=== PATIENT | female | born 1990 | race Caucasian/White ===

== ENCOUNTER 2017-01-16 10:21 | Emergency (ER) | payer MEDICAID, OTHER ==
[~2017-01-16] VITALS: Ht 162.6 cm; Wt 77.1 kg
[2017-01-16] MEDS ORDERED: LORazepam 0.5 MG TAB PO ONE (10:45)
[2017-01-16] MEDS ORDERED: ONDANSETRON ODT 4 MG TAB PO ONE (10:45)
[2017-01-16] MEDS ORDERED: ALBUTEROL SULF 2.5 MG/0.5ML(0.5%) NEB SOLN NEB ONE (10:45)
[2017-01-16 11:25] VITALS: BP 125/69
== END 2017-01-16 15:22 | disposition home or self-care (01) ==
LOC: ER 10:21
DX: J20.9 Acute bronchitis, unspecified (principal); K21.9 Gastro-esophageal reflux disease without esophagitis; G40.909 Epilepsy, unspecified, not intractable, without status epilepticus
CPT/HCPCS: 94640; 99283; Q0162

== ENCOUNTER 2017-03-15 17:25 | Emergency (ER) | payer MEDICAID ==
[~2017-03-15] VITALS: Ht 167.6 cm; Wt 90.7 kg
[2017-03-15 17:48] VITALS: BP 110/73
[2017-03-15] MEDS ORDERED: SODIUM CHLORIDE 0.9% 1,000 ML IV ONE (18:37)
[2017-03-15] MEDS ORDERED: ONDANSETRON HCL 4 MG/2 ML VIAL IV ONE (18:45)
[2017-03-15 20:15] LABS: Basophils # (auto) 0 uL; Basophils % (auto) 0.5 % (0.0-2.0); Eosinophils # (auto) 0.1 uL; Eosinophils % (auto) 1.5 % (0.0-7.0); Hematocrit 40.7 % (36.0-46.0); Hemoglobin 13.7 g/dL (12.2-16.2); Lymphocytes # (auto) 1.2 uL; Lymphocytes % (auto) 15.6 % (10.0-50.0); Mean Corpuscular Hemoglobin 30.2 pg (28.0-32.0); Mean Corpuscular Hgb Conc. 33.7 g/dL (32.0-36.0); Mean Corpuscular Volume 89.7 fL (80.0-100.0); Mean Platelet Volume 7.4 fL (6.9-10.8); Monocytes # (auto) 0.4 uL; Monocytes % (auto) 5.2 % (0.0-12.0); Neutrophils # (auto) 5.9 uL; Neutrophils % (auto) 77.2 % (37.0-80.0); Platelet Count (auto) 226 10^3/uL (140-450); Red Cell Distribution Width 12.3 % (11.8-14.3); White Blood Cell 7.6 10^3/uL (4.4-10.8)
[2017-03-15 20:20] LABS: INR 1.03 (0.9-1.15); Partial Thromboplastin Time 27.4 sec (22.64-33.71); Prothrombin Time 11.2 sec (9.37-12.3)
[2017-03-15 20:25] LABS: Albumin 4.2 g/dL (3.4-5.0); Calcium 9.1 mg/dL (8.5-10.1); Potassium 3.6 mmol/L (3.5-5.1)
[2017-03-15 20:28] LABS: BUN/Creatinine Ratio 12.9
[2017-03-15 20:30] LABS: Bilirubin, Total 0.3 mg/dL (0.2-1.0); Total Protein 8.1 g/dL (6.4-8.2)
== END 2017-03-16 10:15 | disposition home or self-care (01) ==
LOC: EDBD 17:25 → ER 17:38
DX: R11.10 Vomiting, unspecified (principal); B86 Scabies; K21.9 Gastro-esophageal reflux disease without esophagitis; Z88.8 Allergy status to other drugs, medicaments and biological substances
CPT/HCPCS: 36415; 80053; 85025; 85610; 85730; 96361; 96374; 99285; J2405; J7030

== ENCOUNTER 2017-06-03 17:56 | Emergency (ER) | payer MEDICAID ==
[~2017-06-03] VITALS: Ht 167.6 cm; Wt 90.7 kg
[2017-06-03 18:30] LABS: Basophils # (auto) 0 uL; Basophils % (auto) 0.3 % (0.0-2.0); Eosinophils # (auto) 0.1 uL; Eosinophils % (auto) 1.5 % (0.0-7.0); Hemoglobin 14.2 g/dL (12.2-16.2); Lymphocytes # (auto) 2.1 uL; Lymphocytes % (auto) 21.4 % (10.0-50.0); Mean Corpuscular Hemoglobin 30.5 pg (28.0-32.0); Mean Corpuscular Hgb Conc. 33.8 g/dL (32.0-36.0); Monocytes # (auto) 0.5 uL; Monocytes % (auto) 5.2 % (0.0-12.0); Neutrophils # (auto) 6.9 uL; Neutrophils % (auto) 71.6 % (37.0-80.0); Nucleated Red Blood Cells % 0.1 %; Platelet Count (auto) 221 10^3/uL (140-450); Red Blood Cells 4.67 10^6/uL (4.0-5.20); Red Cell Distribution Width 12.5 % (11.8-14.3); White Blood Cell 9.6 10^3/uL (4.4-10.8)
[2017-06-03 18:31] LABS: Urine WBC None Seen /hpf (0 - 5)
[2017-06-03 18:50] LABS: Urine Amorphous Crystal MOD /hpf (None Seen); Urine Bacteria NONE SEEN /hpf (None Seen); Urine Blood 1+ /uL (Negative); Urine Specific Gravity 1.018 (1.001-1.035)
[2017-06-03 18:51] LABS: Albumin 4.2 g/dL (3.4-5.0); BUN/Creatinine Ratio 9.1; Bilirubin, Total 0.2 mg/dL (0.2-1.0); Potassium 3.6 mmol/L (3.5-5.1); Total Protein 7.9 g/dL (6.4-8.2)
[2017-06-03] MEDS ORDERED: ONDANSETRON HCL 4 MG/2 ML VIAL IV ONE (19:00)
[2017-06-03] MEDS ORDERED: MORPHINE SULFATE 4 MG/ML SYR/VIAL IV ONE (19:00)
[2017-06-03 19:26] LABS: Amylase 75 U/L (25-115); Lipase 279 U/L (73-393)
[2017-06-04 01:01] LABS: Urine Pregnacy Test Negative (Negative)
[2017-06-04 01:28] LABS: Alcohol, Urine < 3.0 mg/dL (0-5); Amphetamine Screen, Urine NEGATIVE (NEGATIVE); Barbiturate Scree,Urine NEGATIVE (NEGATIVE); Benzodiazephine Screen, Urine NEGATIVE (NEGATIVE); Cannabinoid Screen, Urine POSITIVE (NEGATIVE); Cocaine Screen, Urine NEGATIVE (NEGATIVE); Opiate Scree,Urine NEGATIVE (NEGATIVE); Phencyclidine Screen, Urine NEGATIVE (NEGATIVE)
[2017-06-04] MEDS ORDERED: ONDANSETRON HCL 4 MG/2 ML VIAL IV ONE (01:30)
[2017-06-04 01:58] VITALS: BP 106/62
[2017-06-04] MEDS ORDERED: MORPHINE SULFATE 4 MG/ML SYR/VIAL IV ONE (02:00)
== END 2017-06-04 02:41 | disposition home or self-care (01) ==
LOC: EDBD 17:56 → ER 17:56
DX: R10.84 Generalized abdominal pain (principal); R11.2 Nausea with vomiting, unspecified; K21.9 Gastro-esophageal reflux disease without esophagitis; Z88.6 Allergy status to analgesic agent
CPT/HCPCS: 36415; 74176; 80053; 80307; 81001; 81025; 82150; 83690; 85025; 96374; 96375; 96376; 99285; J2270; J2405

== ENCOUNTER 2017-10-27 13:35 | Inpatient (IN) | payer MEDICAID ==
[~2017-10-27] VITALS: Ht 167.6 cm; Wt 93.8 kg
[2017-10-27] MEDS ORDERED: LORazepam 2MG/ML-1ML VIAL ONE ×2 (13:44→14:30)
[2017-10-27] MEDS ORDERED: LORazepam 2MG/ML-1ML VIAL IV ONE ×3 (14:00→14:45)
[2017-10-27 14:08] LABS: Basophils # (auto) 0 uL; Basophils % (auto) 0.3 % (0.0-2.0); Eosinophils # (auto) 0.1 uL; Eosinophils % (auto) 1.5 % (0.0-7.0); Hematocrit 39.1 % (36.0-46.0); Hemoglobin 13.4 g/dL (12.2-16.2); Lymphocytes # (auto) 1.2 uL; Lymphocytes % (auto) 16.8 % (10.0-50.0); Mean Corpuscular Hemoglobin 31.3 pg (28.0-32.0); Mean Corpuscular Hgb Conc. 34.4 g/dL (32.0-36.0); Monocytes # (auto) 0.4 uL; Monocytes % (auto) 5.6 % (0.0-12.0); Neutrophils # (auto) 5.6 uL; Neutrophils % (auto) 75.8 % (37.0-80.0); Platelet Count (auto) 160 10^3/uL (140-450); Red Blood Cells 4.29 10^6/uL (4.0-5.20); Red Cell Distribution Width 12.5 % (11.8-14.3); White Blood Cell 7.3 10^3/uL (4.4-10.8)
[2017-10-27] MEDS ORDERED: DIAZEPAM 5 MG/ML 2ML SYRG IV ONE (14:30)
[2017-10-27 14:31] LABS: Albumin 3.6 g/dL (3.4-5.0); BUN/Creatinine Ratio 9.3; Bilirubin, Total 0.4 mg/dL (0.2-1.0); Calcium 8.5 mg/dL (8.5-10.1); Potassium 3.6 mmol/L (3.5-5.1)
[2017-10-27 14:53] LABS: Urine Bacteria NONE SEEN /hpf (None Seen); Urine Blood Negative /uL (Negative); Urine Mucus FEW (None Seen); Urine Specific Gravity 1.012 (1.001-1.035); Urine WBC 3 /hpf (0 - 5)
[2017-10-27 14:59] LABS: Alcohol, Urine < 3.0 mg/dL (0-5); Amphetamine Screen, Urine NEGATIVE (NEGATIVE); Barbiturate Scree,Urine NEGATIVE (NEGATIVE); Benzodiazephine Screen, Urine POSITIVE (NEGATIVE); Cannabinoid Screen, Urine POSITIVE (NEGATIVE); Cocaine Screen, Urine NEGATIVE (NEGATIVE); Opiate Scree,Urine NEGATIVE (NEGATIVE); Phencyclidine Screen, Urine NEGATIVE (NEGATIVE)
[2017-10-27] MEDS ORDERED: SODIUM CHLORIDE 0.9% 1,000 ML IV SCH (16:12)
[2017-10-27] MEDS ORDERED: MORPHINE SULF INJ 2 MG/ML SYRINGE 1ML IV PRN (16:15)
[2017-10-27] MEDS ORDERED: NITROGLYCERIN 0.4 MG SL TAB SL PRN (16:15)
[2017-10-27] MEDS ORDERED: ONDANSETRON HCL 4 MG/2 ML VIAL IV PRN (16:15)
[2017-10-27] MEDS ORDERED: MORPHINE SULFATE 4 MG/ML SYR/VIAL IV PRN (16:15)
[2017-10-27 16:46] LABS: Urine Pregnacy Test Negative (Negative)
[2017-10-27] MEDS ORDERED: LEVETIRACETAM INJ 1,000 MG in D5W 5% 100 ML IV ONE (17:30)
[2017-10-27] MEDS: OXcarbazepine 300 MG TAB PO SCH (22:00)
[2017-10-27] MEDS: LEVETIRACETAM INJ 500 MG in D5W 5% 100 ML IV SCH (22:11)
[2017-10-28] VITALS (26 sets, daily range): BP systolic 89–136; BP diastolic 47–83
[2017-10-28] MEDS: OXcarbazepine 300 MG TAB PO SCH ×2 (01:01→21:46)
[2017-10-28 03:42] LABS: Basophils # (auto) 0 uL; Basophils % (auto) 0.4 % (0.0-2.0); Eosinophils # (auto) 0.1 uL; Eosinophils % (auto) 1.8 % (0.0-7.0); Hematocrit 39.3 % (36.0-46.0); Hemoglobin 13.2 g/dL (12.2-16.2); Lymphocytes # (auto) 1.5 uL; Lymphocytes % (auto) 21.3 % (10.0-50.0); Mean Corpuscular Hemoglobin 30.2 pg (28.0-32.0); Mean Corpuscular Hgb Conc. 33.5 g/dL (32.0-36.0); Mean Corpuscular Volume 90.4 fL (80.0-100.0); Monocytes # (auto) 0.4 uL; Monocytes % (auto) 6.3 % (0.0-12.0); Neutrophils # (auto) 4.9 uL; Neutrophils % (auto) 70.2 % (37.0-80.0); Nucleated Red Blood Cells % 0.1 %; Platelet Count (auto) 157 10^3/uL (140-450); Red Blood Cells 4.35 10^6/uL (4.0-5.20); Red Cell Distribution Width 12.5 % (11.8-14.3)
[2017-10-28 04:00] LABS: Albumin 3.2 g/dL (3.4-5.0); Calcium 8.1 mg/dL (8.5-10.1); Potassium 3.8 mmol/L (3.5-5.1)
[2017-10-28 04:15] LABS: Bilirubin, Total 0.3 mg/dL (0.2-1.0); Total Protein 6.2 g/dL (6.4-8.2)
[2017-10-28] MEDS: LEVETIRACETAM INJ 500 MG in D5W 5% 100 ML IV SCH ×2 (10:33→21:46)
[2017-10-28] MEDS ORDERED: PANTOPRAZOLE 40 MG TAB PO ONE (11:00)
[2017-10-28] MEDS: ALBUTEROL SULF 2.5 MG/0.5ML(0.5%) NEB SOLN NEB PRN ×2 (11:43→22:39)
[2017-10-28] MEDS: BUDESONIDE (INHALATION) 0.5 MG/2 ML NEB NEB SCH ×2 (11:44→22:38)
[2017-10-28] MEDS ORDERED: HYDR-4683 PO (16:07)
[2017-10-28] MEDS ORDERED: ALBUAER3 IN (16:07)
[2017-10-28] MEDS ORDERED: BECL80AE11 IN (16:07)
[2017-10-28] MEDS ORDERED: PROM25TA5 PO (16:07)
[2017-10-28] MEDS ORDERED: CHOL20007 PO (16:07)
[2017-10-28] MEDS ORDERED: OME20T PO (16:07)
[2017-10-28] MEDS ORDERED: OXCA600T3 PO (16:07)
[2017-10-28] MEDS ORDERED: DIVA500T53 PO (16:07)
[2017-10-28] MEDS ORDERED: ONDA4TAB5 PO (16:07)
[2017-10-28] MEDS ORDERED: DICY10CA12 PO (16:07)
[2017-10-28] MEDS ORDERED: LORA-622 PO (16:07)
[2017-10-28] MEDS ORDERED: TRIA0.1P11 TOP (16:07)
[2017-10-28] MEDS ORDERED: MAGN400T21 PO (16:07)
[2017-10-29] VITALS (10 sets, daily range): BP systolic 101–125; BP diastolic 56–75
[2017-10-29] MEDS: LORazepam 2MG/ML-1ML VIAL IV PRN ×5 (02:40→20:35)
[2017-10-29] MEDS: ALBUTEROL SULF 2.5 MG/0.5ML(0.5%) NEB SOLN NEB PRN (06:12)
[2017-10-29] MEDS: BUDESONIDE (INHALATION) 0.5 MG/2 ML NEB NEB SCH ×2 (06:13→20:24)
[2017-10-29 11:09] LABS: INR 1.07 (0.9-1.15); Partial Thromboplastin Time 29.9 sec (23.78-33.04); Prothrombin Time 11.4 sec (9.27-12.13)
[2017-10-29] MEDS: PANTOPRAZOLE 40 MG TAB PO SCH (11:15)
[2017-10-29] MEDS: LEVETIRACETAM INJ 500 MG in D5W 5% 100 ML IV SCH (11:15)
[2017-10-29] MEDS: OXcarbazepine 300 MG TAB PO SCH ×2 (11:15→22:45)
[2017-10-29] MEDS: CHOLECALCIFEROL (VITD3) 1,000 UNIT TAB PO SCH (11:30)
[2017-10-29] MEDS: ALBUTEROL SULF 2.5 MG/0.5ML(0.5%) NEB SOLN NEB SCH ×2 (11:35→20:24)
[2017-10-29] MEDS ORDERED: ETOMIDATE (2MG/ML) 20ML VIAL IV ONE (11:49)
[2017-10-29] MEDS ORDERED: SUCCINYLCHOLINE CHLORIDE 20 MG/ML 10ML VIAL IV ONE (11:49)
[2017-10-29] MEDS ORDERED: ROCURONIUM 10MG/ML 10ML VIAL IV ONE (11:50)
[2017-10-29] MEDS ORDERED: MIDAZOLAM HCL 5 MG/ML-1ML VIAL ONE (11:51)
[2017-10-29] MEDS ORDERED: MIDAZOLAM DRIP 50 mg/50mL 0 ML IV ONE (11:56)
[2017-10-29] MEDS ORDERED: MIDAZOLAM HCL 5 MG/ML-1ML VIAL IV ONE (12:00)
[2017-10-29] MEDS ORDERED: DICYCLOMINE HCL 10 MG CAP PO PRN (12:00)
[2017-10-29] MEDS ORDERED: SODIUM BICARBONATE 8.4% INJ 50ML SYRINGE IV ONE (16:36)
[2017-10-29] MEDS ORDERED: EPINEPHrine HCL 1 MG/10 ML SYRG IV ONE (16:36)
[2017-10-29] MEDS ORDERED: PHENobarbital SODIUM INJ 600 MG in SODIUM CHL 0.9% 100 ML IV ONE (21:00)
[2017-10-30] MEDS: ALBUTEROL SULF 2.5 MG/0.5ML(0.5%) NEB SOLN NEB SCH ×3 (00:20→11:56)
[2017-10-30 02:30] VITALS: BP 130/78
[2017-10-30 04:30] VITALS: BP 132/73
[2017-10-30 06:57] LABS: Basophils # (auto) 0 uL; Basophils % (auto) 0.3 % (0.0-2.0); Eosinophils # (auto) 0.1 uL; Hematocrit 38.9 % (36.0-46.0); Hemoglobin 13.4 g/dL (12.2-16.2); Lymphocytes # (auto) 1.7 uL; Lymphocytes % (auto) 26.2 % (10.0-50.0); Mean Corpuscular Hemoglobin 31.1 pg (28.0-32.0); Mean Corpuscular Hgb Conc. 34.4 g/dL (32.0-36.0); Mean Corpuscular Volume 90.5 fL (80.0-100.0); Monocytes # (auto) 0.5 uL; Monocytes % (auto) 7.4 % (0.0-12.0); Neutrophils # (auto) 4.2 uL; Neutrophils % (auto) 64.1 % (37.0-80.0); Platelet Count (auto) 149 10^3/uL (140-450); Red Cell Distribution Width 12.5 % (11.8-14.3); White Blood Cell 6.6 10^3/uL (4.4-10.8)
[2017-10-30 07:12] LABS: BUN/Creatinine Ratio 9.5; Calcium 8.3 mg/dL (8.5-10.1); Potassium 3.5 mmol/L (3.5-5.1)
[2017-10-30 08:00] VITALS: BP 141/94
[2017-10-30 09:49] VITALS: BP 130/76
[2017-10-30] MEDS: CHOLECALCIFEROL (VITD3) 1,000 UNIT TAB PO SCH (10:00)
[2017-10-30] MEDS ORDERED: MAGNESIUM OXIDE 400 MG TAB PO SCH (10:00)
[2017-10-30] MEDS ORDERED: LORATADINE 10 MG TAB PO SCH (10:00)
[2017-10-30] MEDS: PANTOPRAZOLE 40 MG TAB PO SCH (10:54)
[2017-10-30] MEDS: OXcarbazepine 300 MG TAB PO SCH (10:55)
[2017-10-30] MEDS: BUDESONIDE (INHALATION) 0.5 MG/2 ML NEB NEB SCH (11:50)
[2017-10-30 11:56] VITALS: BP 114/72
[2017-10-30] MEDS ORDERED: HYDROcodone-ACET 5/325MG TAB PO PRN (14:00)
[2017-10-30] MEDS ORDERED: clonazePAM 0.5 MG TAB PO PRN (14:00)
[2017-10-30] MEDS ORDERED: traZODone HCL 50 MG TAB PO SCH (22:00)
== END 2017-10-30 14:33 | disposition short-term general hospital (02) | DRG 53 ==
LOC: EDBD 13:35 → ER 13:38 → TELE 13:39 → ICU WEST 23:10 → TELE-EAST 10-29 01:29 → ICU WEST 10-29 12:19 → TELE-WESTW 10-29 16:49 → DOU IN ICU 10-30 02:09
PROVIDERS: ADMIT Internal Medicine; ATTEND Internal Medicine
DX: G40.401 Other generalized epilepsy and epileptic syndromes, not intractable, with status epilepticus (principal); O00.90 Unspecified ectopic pregnancy without intrauterine pregnancy; E66.9 Obesity, unspecified; N18.2 Chronic kidney disease, stage 2 (mild); K21.9 Gastro-esophageal reflux disease without esophagitis; F41.9 Anxiety disorder, unspecified; J45.909 Unspecified asthma, uncomplicated; F60.9 Personality disorder, unspecified; F43.20 Adjustment disorder, unspecified; G89.29 Other chronic pain; F12.90 Cannabis use, unspecified, uncomplicated; G43.909 Migraine, unspecified, not intractable, without status migrainosus; Z79.899 Other long term (current) drug therapy; Z82.3 Family history of stroke; Z88.8 Allergy status to other drugs, medicaments and biological substances; Z84.89 Family history of other specified conditions; Z68.33 Body mass index [BMI] 33.0-33.9, adult
CPT/HCPCS: 36415; 36600; 51702; 70450; 71045; 76801; 76817; 80048; 80053; 80164; 80307; 81001; 81025; 82306; 82784; 82805; 83516; 84146; 84702; 85025; 85379; 85610; 85652; 85730; 86141; 86225; 86235; 86255; 87081; 93005; 94640; 94761; 95819; 96374; 96375; 96376; J0330; J2250; J2405; J7060

== ENCOUNTER 2019-04-24 22:08 | Emergency (ER) | payer MEDICAID ==
[~2019-04-24] VITALS: Ht 160 cm; Wt 83.9 kg
[~2019-04-24 22:08] MED LIST: ALBUAER3 IN; BECL80AE11 IN; CHOL20007 PO; DICY10CA12 PO; DIVA500T53 PO; HYDR-4833 PO; LORA-622 PO; MAGN400T21 PO; OME20T PO; ONDA-144 PO; OXCA600T3 PO; PROM25TA5 PO; TRIA0.1P11 TOP
[2019-04-24 23:18] LABS: Basophils # (auto) 0 uL; Basophils % (auto) 0.3 % (0.0-2.0); Eosinophils # (auto) 0.2 uL; Eosinophils % (auto) 1.7 % (0.0-7.0); Hematocrit 42.7 % (36.0-46.0); Hemoglobin 14.5 g/dL (12.2-16.2); Lymphocytes # (auto) 2.3 uL; Lymphocytes % (auto) 25.1 % (10.0-50.0); Mean Corpuscular Hgb Conc. 33.9 g/dL (32.0-36.0); Mean Corpuscular Volume 91.3 fL (80.0-100.0); Monocytes # (auto) 0.5 uL; Monocytes % (auto) 5.5 % (0.0-12.0); Neutrophils # (auto) 6.1 uL; Neutrophils % (auto) 67.4 % (37.0-80.0); Platelet Count (auto) 220 10^3/uL (140-450); Red Blood Cells 4.67 10^6/uL (4.0-5.20); Red Cell Distribution Width 11.9 % (11.8-14.3); White Blood Cell 9.1 10^3/uL (4.4-10.8)
[2019-04-24 23:23] LABS: Urine Bacteria NONE SEEN /hpf (None Seen); Urine Blood 2+ /uL (Negative); Urine Mucus FEW (None Seen); Urine Specific Gravity 1.011 (1.001-1.035); Urine WBC 10 /hpf (0 - 5)
[2019-04-24 23:34] LABS: Albumin 4.1 g/dL (3.4-5.0); Calcium 8.9 mg/dL (8.5-10.1); Potassium 3.2 mmol/L (3.5-5.1)
[2019-04-24 23:37] LABS: BUN/Creatinine Ratio 7.3
[2019-04-24 23:40] LABS: Bilirubin, Total 0.2 mg/dL (0.2-1.0); Total Protein 8.1 g/dL (6.4-8.2)
[2019-04-24] MEDS ORDERED: ONDANSETRON ODT 4 MG TAB PO ONE (23:55)
[2019-04-25] MEDS ORDERED: ONDANSETRON ODT 4 MG TAB PO ONE
[2019-04-25] MEDS ORDERED: KETOROLAC TROMETH 60MG/2ML VIAL IM ONE (02:15)
[2019-04-25 02:46] VITALS: BP 117/69
[2019-04-25] MEDS ORDERED: ONDANSETRON HCL 4 MG/2 ML VIAL IM ONE (03:00)
[2019-04-25] MEDS ORDERED: MORPHINE SULFATE 4 MG/ML SYR/VIAL IM ONE (03:00)
[2019-04-25] MEDS ORDERED: MORPHINE SULFATE 10 MG/ML INJ 1ML SDV IM ONE (03:00)
== END 2019-04-25 03:56 | disposition home or self-care (01) ==
LOC: ER 22:08
DX: N20.0 Calculus of kidney (principal); N39.0 Urinary tract infection, site not specified; R11.2 Nausea with vomiting, unspecified; Z88.6 Allergy status to analgesic agent; Z79.899 Other long term (current) drug therapy
CPT/HCPCS: 36415; 74176; 80053; 81001; 81025; 85025; 96372; 99284; J1885; J2270; J2405; Q0162

== ENCOUNTER 2019-08-01 18:42 | Emergency (ER) | payer MEDICAID ==
[~2019-08-01] VITALS: Ht 160 cm; Wt 83.9 kg
[2019-08-01 20:10] VITALS: BP 142/83
[2019-08-01] MEDS ORDERED: methylPREDNISolone SOD SUCC 125 MG/2 ML VL IM ONE (20:45)
== END 2019-08-01 20:43 | disposition home or self-care (01) ==
LOC: ER 18:43
DX: T78.40XA Allergy, unspecified, initial encounter (principal); L29.9 Pruritus, unspecified; X58.XXXA Exposure to other specified factors, initial encounter
CPT/HCPCS: 96372; 99283; J2930

== ENCOUNTER 2021-02-17 11:05 | Emergency (ER) | payer MEDICARE, MEDICAID ==
[~2021-02-17] VITALS: Ht 160 cm; Wt 107.0 kg
[~2021-02-17 11:05] MED LIST changes: +DIVA500T2 PO; -DIVA500T53 PO; +MAGN241.4 PO; -MAGN400T21 PO; -TRIA0.1P11 TOP; +TRIA0.1P17 TOP
[2021-02-17] MEDS ORDERED: SODIUM CHLORIDE 0.9% 500 ML IV ONE (12:30)
[2021-02-17] MEDS ORDERED: SODIUM CHLORIDE 0.9% 1,000 ML IV ONE (12:30)
[2021-02-17] MEDS ORDERED: DexAMETHasone SOD PHOS 10MG/1ML VIAL INJ IV ONE (12:30)
[2021-02-17] MEDS ORDERED: HYDROmorphone HCL 2 MG/ML VL IM ONE (12:30)
[2021-02-17] MEDS ORDERED: METOCLOPRAMIDE HCL 5MG/ml INJ 2ml VIAL IM ONE (12:30)
[2021-02-17 13:43] LABS: Urine Bacteria FEW /hpf (None Seen); Urine Blood Negative /uL (Negative); Urine Hyaline Cast FEW /lpf (0 - 2); Urine Mucus FEW (None Seen); Urine WBC 22 /hpf (0 - 5)
[2021-02-17 13:43] LABS: Basophils # (auto) 0.1 10 ^3/uL (0-0.2); Basophils % (auto) 0.9 % (0.0-2.0); Eosinophils # (auto) 0.2 10 ^3/uL (0-0.8); Eosinophils % (auto) 2.5 % (0.0-7.0); Hematocrit 44.9 % (36.0-46.0); Hemoglobin 15.1 g/dL (12.2-16.2); Lymphocytes # (auto) 1.5 10 ^3/uL (0.4-5.4); Mean Corpuscular Hgb Conc. 33.7 g/dL (32.0-36.0); Mean Corpuscular Volume 88.9 fL (80.0-100.0); Monocytes # (auto) 0.5 10 ^3/uL (0-1.3); Monocytes % (auto) 7.6 % (0.0-12.0); Neutrophils # (auto) 4.9 10 ^3/uL (1.6-8.6); Nucleated Red Blood Cells % 0.1 %; Red Blood Cells 5.05 10^6/uL (4.0-5.20); Red Cell Distribution Width 13.3 % (11.8-14.3); White Blood Cell 7.2 10^3/uL (4.4-10.8)
[2021-02-17] MEDS ORDERED: HYDROmorphone HCL 2 MG/ML VL IV ONE (14:00)
[2021-02-17] MEDS ORDERED: METOCLOPRAMIDE HCL 5MG/ml INJ 2ml VIAL IV ONE (14:00)
[2021-02-17 14:08] LABS: Albumin 3.7 g/dL (3.4-5.0); Magnesium 2.6 mg/dL (1.6-2.6); Potassium 3.6 mmol/L (3.5-5.1)
[2021-02-17 14:12] LABS: BUN/Creatinine Ratio 6.7; Bilirubin, Total 0.3 mg/dL (0.2-1.0); Total Protein 7.9 g/dL (6.4-8.2)
[2021-02-17 15:29] VITALS: BP 124/75
== END 2021-02-17 15:36 | disposition home or self-care (01) ==
LOC: ER 11:05
DX: M54.12 Radiculopathy, cervical region (principal); M47.892 Other spondylosis, cervical region; J45.909 Unspecified asthma, uncomplicated
CPT/HCPCS: 36415; 80053; 81001; 83735; 85025; 96361; 96374; 96375; 99285; J1100; J1170; J2765; J7030; J7040